=== PATIENT | female | born 1960 | race Caucasian/White ===

== ENCOUNTER 2017-06-17 10:01 | Day surgery (SDC) | payer OTHER ==
[~2017-06-17 10:01] MED LIST: Acetaminophen TAB* 325 MG PO PRN; Buffered Lidocaine 0.9% SYRIN* 5 ML/SYR SYRINGE INTRADERM ONE
[2017-06-17] MEDS ORDERED: Midazolam* 1 MG/ML 2 ML VIAL (2 MG) ONE ×2 (12:16→12:22)
[2017-06-17] MEDS ORDERED: Propofol* 10 MG/ML 20 ML BTL IV PUSH ONE (12:26)
[2017-06-17 12:55] VITALS: BP 113/66
[2017-06-17] MEDS ORDERED: Buffered Lidocaine 0.9% SYRIN* 5 ML/SYR SYRINGE ONE (13:59)
[2017-06-17] MEDS ORDERED: Phenylephrine 2.5% OPTH.SOL* 2 ML BTL ONE (13:59)
[2017-06-17] MEDS ORDERED: Lidocaine 1% MPF* 2 ML VIAL ONE (13:59)
[2017-06-17] MEDS ORDERED: Tetracaine 0.5% OPTH.SOL 4 ML* 1 DROP BTL ONE (13:59)
[2017-06-17] MEDS ORDERED: Ketorolac 0.5% OPHTH (NF) 0.5 % 5 ML BTL ONE (13:59)
[2017-06-17] MEDS ORDERED: Tropicamide 1% OPTH.SOL* BTL ONE (13:59)
[2017-06-17] MEDS ORDERED: Cyclopentolate 1% OPTH.SOL* 2 ML BTL ONE (13:59)
[2017-06-17] MEDS ORDERED: Neomycin/Polymy/Dex OPHTH.OIN* 3.5 GM ONE (13:59)
--- NOTE | 2017-06-17 14:37 | OP ---
DATE OF OPERATION/DATE OF DICTATION: 06/17/2017 - FORMERLY [facility] DATE OF : 1960. SURGEON: Dr. Jake Hurd. CERAMIC TILE INSTALLER: None. ANESTHESIA: Topical with intravenous sedation. PRE-OP DIAGNOSIS: Cataract, right eye. POST-OP DIAGNOSIS: Cataract, right eye. OPERATIVE PROCEDURE: Phacoemulsification and cataract extraction with posterior chamber intraocular lens implant, right eye. COMPLICATIONS: None. BLOOD LOSS: None. DESCRIPTION OF PROCEDURE: The patient was brought to the operating room and received a small amount of intra-venous sedation. A drop of Tetracaine was placed in her right eye. She was prepped and draped in the usual sterile fashion for ophthalmic surgery and attention was directed to the right eye where a speculum was placed. A paracentesis was created at the 11 o'clock position and 0.1 cc of 1 percent preservative-free Lidocaine was injected into the anterior chamber followed by DisCoVisc. The eye was digitally stabilized while a 2.75 mm keratome was used to create a triplanar clear corneal incision at the 9 o'clock position. A continuous curvilinear capsulorrhexis was created with a cystotome and Utrata forceps. BSS on a cannula was used to hydrodissect the lens from the capsule. Phacoemulsification was performed in a divide-and- conquer technique to create four fragments which were removed. Residual cortical material was removed with irrigation and aspiration. DisCoVisc was used to inflate the capsular bag and an AUOOTO 20.5 diopter lens was folded and inserted into the capsular bag. DisCoVisc was removed using irrigation and aspiration. BSS on a cannula was used to hydrate the corneal stroma and seal the wound. At the end of the case the pupil was round and the lens was centered. The eye was of normal pressure and the wound was water tight. The speculum was removed and topical Maxitrol ointment was placed on the surface of the eye. The eye was closed, patched and shielded and the patient was sent to the recovery room in stable condition with post operative instructions and follow-up appointment given. [id number] #: [id number] MTDD
== END 2017-06-17 13:04 | disposition home or self-care (01) ==
LOC: OREAST 10:01
PROVIDERS: ATTEND Ophthalmology
PROC: 08RJ3JZ Replacement of Right Lens with Synthetic Substitute, Percutaneous Approach (ICD-10-PCS; principal; 2017-06-17 11:30)
DX: H25.11 Age-related nuclear cataract, right eye (principal); Z87.891 Personal history of nicotine dependence
CPT/HCPCS: A9270-GY; J2250; J2704; V2632

== ENCOUNTER 2017-12-04 15:02 | Emergency (ER) | payer OTHER ==
--- OUTSIDE RECORDS SUMMARY | 2017-12-04 15:15 | XMS REPORT ---
:1960 External Reference #:[id number] Author Organization [facility] Address [address] [address] Phone [phone] Care Team Providers Name Role Phone Dony Morillo III, MD Primary Care Physician Unavailable Payers Type Date Identification Numbers Payment Provider Subscriber Commercial Policy Number: [id number] Damian Trotter Group Number: [id number] [address] PayID: [id number] [place] [address] Problems Date Description Provider Status Onset: 02/28/2016 Dyspnea Zena Masters MD Active Onset: 02/28/2016 Disorder of lung Zena Masters MD Active Onset: 02/28/2016 Disturbance in sleep behavior Zena Masters MD Active Onset: 03/19/2016 Cough Zena Masters MD Active Onset: 03/19/2016 Allergic rhinitis Zena Masters MD Active Onset: 09/13/2016 Asthma without status asthmaticus Zena Masters MD Active Family History Date Family Member(s) Problem(s) Comments General Cancer General Heart Disease General Hypertension General Stroke Father due to Pulmonary hypertention () Father Hypertension Mother Alive And Well Mother Hypercholesterolemia Social History Type Date Description Comments Marital Status Lives With Alone Occupation Currently Working 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, 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 Cigarette Use 05/31/2016 Quit 6 Years Ago quit 01/2010 ETOH Use Occasionally consumes alcohol Smoking Patient is a former smoker Daily Caffeine Does Not Consume Caffeine Exercise Type/Frequency Exercises regularly Hiking, walking Allergies, Adverse Reactions, Alerts Date Description Reaction Status Severity Comments 02/28/2016 Penicillin twin has allergy active Moderate 02/28/2016 Shellfish-derived Products active 02/28/2016 Vancomycin rash active Medications Medication Date Status Form Strength Qnty SIG Indications Ordering Provider Multivitamin 02/26 Active Tablets 1 tab Unknown daily Flonase Allergy 02/26 Active Suspension 50mcg/Act 15.80 spray 1 Tiago Relief 0ml spray in BERNARDINO Quiñones each nostril twice daily Clonidine HCL Active Tablets 0.5mg 1 po qd Fexofenadine HCL Active Tablets 180mg 30tab 1 by mouth Dony EUri s every day Murphy Morillo Lorazepam Active Tablets 0.5mg 1 by mouth three a day as needed Folic Acid Active Tablets 400mcg take one tablet by mouth every day (supplemen t) Lactose Active Capsules 1Tab Saline Mist [place] Active Solution 0.65% spray in each nostril 6-8 times daily Ranitidine HCL Active Tablets 150mg 1 po daily as needed Potassium 04/06 Hx Tablets ER 20Meq 14tab 1 by mouth Tiago Chloride s every day BERNARDINO Quiñones - x 2 weeks 06/05 Doxycycline 12/26 Hx Capsules 100mg 20cap one tablet J01.90 Tiago Hyclate s twice BERNARDINO Quiñones - daily for 01/03 10 days. Methylprednisolon 11/14 Hx TBPK 4mg 1unit use per M54.Sunil fischer /2016 s directions Bk Morillo M.D. 12/26 Cyclobenzaprine 11/14 Hx Tablets 10mg 30tab one by [email or web address] Maurice HAYDER s mouth Pachikara - Murphy lemus 03/27 times day as needed spasm Doxycycline 08/12 Hx Tablets 100mg 2tabs take both R21 Dony Rivera cl Bk Nur M.D. 03/27 Lorazepam 06/14 Hx Tablets 0.5mg 45tab 1 tab in s prakash Guerra, - and 1/2 M.D. 03/27 tab in the evening Lorazepam 05/31 Hx Tablets 0.5mg 30tab 1 by mouth F41.9 Wilber s daily Charlie, - M.D. 06/14 Trazodone HCL 05/31 Hx Tablets 50mg 30tab take 1 F41.9 Dony E. s tablet by Yisel, - mouth M.D. 03/27 every day for sleep Escitalopram 05/31 Hx Tablets 20mg 30tab Take One F41.9 Wilber Oxalate s Tablet By Charlie, - Mouth Once M.D. 11/14 Nystatin 04/03 Hx Suspension [id number] 180ml 5cc swish Zena /2016 t/ML and spit 2 Guerrero, - times a Levaquin 03/28 Hx Tablets 500mg 7tabs 1 by mouth every day Guerrero, - 05/22 Benzonatate 03/28 Hx Capsules 100mg 120ca 1 capsule ps 2-3 times Guerrero, - a day as 05/31 needed Prednisone 03/19 Hx Tablets 20mg 30tab 3 tabs R05 s daily for Guerrero, - 3 days, 2 05/22 tabs daily for 3 days, 1 tab daily for 7 days, 1/2 tab for 7 days Symbicort 03/18 Hx Aerosol (pt does not take) - 09/12 Alprazolam 02/26 Hx Tablets 0.5mg as needed - 06/14 Biotin 02/26 Hx Capsules 1mg - 03/18 Citalopram 02/26 Hx Tablets 40mg 1 tablet Zena Hydrobromide daily Guerrero, - 02/26 Fish Oil 02/26 Hx Capsules 435mg not taking - 05/31 Flaxseed Oil 02/26 Hx Capsules 1000mg - 12/01 Flonase Allergy 02/26 Hx Suspension 50mcg/Act 2 Unknown intranasal - twice a Omeprazole 02/[address] 40mg not taking - 09/12 Citalopram 02/26 Hx Tablets 40mg 1 by mouth Unknown Hydrobromide /2015 every day - 09/12 Celebrex 02/26 Hx Capsules 50mg 1 by mouth Unknown a day - 11/14 Nexium 02/[address] 40mg 1 by mouth Unknown every day - 05/31 Probiotic Hx Capsules Unknown Acidophilus /0000 - 03/27 Tenex Hx Tablets 1mg start with Unknown /0000 1/4 tab - - (2 of 03/27 1/2 tab) once daily at bedtime for 1 week. increase by 1/4 tablet in 1 wk to 1/2 tab x1at night Pantoprazole Hx Tablets DR 20mg 30tab 1 tab Dony E. Sodium /0000 s daily by Yisel, - mouth M.DUri 12/01 Bupropion HCL Hx Tablets take 1 Unknown /0000 tablet - veras . 12/03 Gabapentin Hx Capsules 300mg Unknown / - 03/27 Benzonatate Hx Capsules 100mg one by Unknown /0000 mouth - three 03/27 times daily as needed for cough Bupropion HCL ER Hx Tablets ER 150mg daily Unknown (XL) /0000 24HR - 06/05 Sertraline HCL Hx Tablets 50mg 1 by mouth Unknown /0000 every day - 12/01 Ashwaganda 00/ Hx Unknown /0000 - 12/01 B12 Hx Chewtabs 1mg take one Unknown /0000 capsule/ta - blet daily 12/01 sublingual /2018 ly Vital Signs Date Vital Result Comment 12/01/2017 Weight 122.00 lb Heart Rate 74 /min BP Systolic Sitting 118 mmHg BP Diastolic Sitting 62 mmHg O2 % BldC Oximetry 95 % 06/20/2017 Height 65 inches 5'5" Weight 119.00 lb Heart Rate 80 /min BP Systolic 122 mmHg BP Diastolic 68 mmHg Respiratory Rate 18 /min Body Temperature 96.9 F Pain Level 8 BMI (Body Mass Index) 19.8 kg/m2 06/05/2017 Weight 119.50 lb Heart Rate 81 /min BP Systolic 118 mmHg BP Diastolic 70 mmHg Body Temperature 97.9 F O2 % BldC Oximetry 98 % 03/27/2017 Weight 111.00 lb Heart Rate 84 /min BP Systolic Sitting 100 mmHg BP Diastolic Sitting 58 mmHg Body Temperature 97.8 F O2 % BldC Oximetry 98 % 12/26/2016 Heart Rate 114 /min BP Systolic Sitting 126 mmHg BP Diastolic Sitting 90 mmHg Respiratory Rate 16 /min Body Temperature 98.5 F O2 % BldC Oximetry 96 % 12/19/2016 Weight 123.00 lb Heart Rate 96 /min BP Systolic Sitting 110 mmHg BP Diastolic Sitting 64 mmHg Respiratory Rate 14 /min Body Temperature 100.1 F O2 % BldC Oximetry 97 % 12/03/2016 Weight 119.00 lb Heart Rate 98 /min BP Systolic Sitting 130 mmHg BP Diastolic Sitting 80 mmHg Respiratory Rate 15 /min Body Temperature 98.7 F O2 % BldC Oximetry 98 % 11/14/2016 Height 65 inches 5'5" Weight 124.00 lb Heart Rate 76 /min BP Systolic 110 mmHg BP Diastolic 62 mmHg Body Temperature 97.6 F O2 % BldC Oximetry 97 % BMI (Body Mass Index) 20.6 kg/m2 09/13/2016 Height 65 inches 5'5" Weight 124.00 lb Heart Rate 66 /min BP Systolic 108 mmHg BP Diastolic 80 mmHg Respiratory Rate 14 /min O2 % BldC Oximetry 98 % BMI (Body Mass Index) 20.6 kg/m2 09/02/2016 Weight 124.12 lb Heart Rate 65 /min BP Systolic 100 mmHg BP Diastolic 64 mmHg Body Temperature 98.2 F O2 % BldC Oximetry 95 % 08/12/2016 Weight 125.12 lb Heart Rate 76 /min BP Systolic 100 mmHg BP Diastolic 66 mmHg Body Temperature 98.1 F O2 % BldC Oximetry 98 % 05/31/2016 Weight 122.00 lb with shoes Heart Rate 79 /min BP Systolic Sitting 132 mmHg BP Diastolic Sitting 84 mmHg O2 % BldC Oximetry 97 % 05/23/2016 Height 65 inches 5'5" Weight 125.00 lb Heart Rate 67 /min BP Systolic 116 mmHg BP Diastolic 80 mmHg Respiratory Rate 14 /min O2 % BldC Oximetry 98 % BMI (Body Mass Index) 20.8 kg/m2 03/19/2016 Height 65 inches 5'5" Weight 125.00 lb Heart Rate 67 /min BP Systolic Sitting 126 mmHg BP Diastolic Sitting 78 mmHg Respiratory Rate 18 /min O2 % BldC Oximetry 97 % BMI (Body Mass Index) 20.8 kg/m2 02/28/2016 Height 65 inches 5'5" Weight 125.00 lb Heart Rate 73 /min BP Systolic 124 mmHg BP Diastolic 80 mmHg Respiratory Rate 14 /min O2 % BldC Oximetry 98 % BMI (Body Mass Index) 20.8 kg/m2 Neck Circumference in inches 13 Results Test Date Test Result H/L Range Note Laboratory test finding 04/24/2017 Erythrocyte Sed Rate 14 mm/Hr 0-30 1 C Reactive Protein < 1.00 mg/L < 5.00 2 Potassium 4.3 mmol/L 3.5-5.0 3 CBC Auto Diff 03/27/2017 White Blood Count 4.5 10^3/uL 3.5-10.8 Red Blood Count 3.94 10^6/uL Low 4.0-5.4 Hemoglobin 12.7 g/dL 12.0-16.0 Hematocrit 37 % 35-47 Mean Corpuscular Volume 95 fL 80-97 Mean Corpuscular Hemoglobin 32 pg High 27-31 Mean Corpuscular HGB Conc 34 g/dL 31-36 Red Cell Distribution Width 13 % 10.5-15 Platelet Count 234 10^3/uL 150-450 Mean Platelet Volume 8 um3 7.4-10.4 Abs Neutrophils 3.0 10^3/uL 1.5-7.7 Abs Lymphocytes 1.2 10^3/uL 1.0-4.8 Abs Monocytes 0.3 10^3/uL 0-0.8 Abs Eosinophils 0 10^3/uL 0-0.6 Abs Basophils 0 10^3/uL 0-0.2 Abs Nucleated RBC 0 10^3/uL Granulocyte % 65.8 % 38-83 Lymphocyte % 26.1 % 25-47 Monocyte % 6.7 % 1-9 Eosinophil % 0.9 % 0-6 Basophil % 0.5 % 0-2 Nucleated Red Blood Cells % 0 Laboratory test finding 03/27/2017 C Reactive Protein 94.31 mg/L High &lt ; 5.00 4 Erythrocyte Sed Rate 37 mm/Hr High 0-30 LDH 237 U/L 140-271 Protein Electrophoresis 03/27/2017 Total Protein(Pep) 6.4 g/dL 6.3 - 7.9 Albumin 3.2 g/dL 3.4-4.7 Alpha-1 Globulin 0.3 g/dL 0.1-0.3 Alpha-2 Globulin 0.9 g/dL 0.6-1.0 Beta Globulin 0.9 g/dL 0.7-1.2 Gamma Globulin 1.1 g/dL 0.6-1.6 Albumin/Globulin Ratio 1.01 Impression See Comment 5 Laboratory test finding 03/27/2017 TSH (Thyroid Stim Horm) 0.64 mcIU/mL 0.34-5.60 Comp Metabolic Panel 03/27/2017 Sodium 139 mmol/L 133-145 Potassium 3.3 mmol/L Low 3.5-5.0 Chloride 103 mmol/L 101-111 Co2 Carbon Dioxide 30 mmol/L 22-32 Anion Gap 6 mmol/L 2-11 Glucose 81 mg/dL 70-100 Blood Urea Nitrogen 17 mg/dL 6-24 Creatinine 0.60 mg/dL 0.51-0.95 BUN/Creatinine Ratio 28.3 High 8-20 Calcium 8.9 mg/dL 8.6-10.3 Total Protein 6.2 g/dL Low 6.4-8.9 Albumin 3.6 g/dL 3.2-5.2 Globulin 2.6 g/dL 2-4 Albumin/Globulin Ratio 1.4 1-3 Total Bilirubin 0.40 mg/dL 0.2-1.0 Alkaline Phosphatase 59 U/L 34-104 Alt 23 U/L 7-52 Ast 25 U/L 13-39 Egfr Non- 102.7 >60 Egfr 132.1 >60 6 Laboratory test finding 03/27/2017 HIV 1&2 AB Self Nonreactive Nonreactive 7 Referred Lyme Disease Serology Negative Negative 8 Laboratory test finding 09/02/2016 Lyme Disease Serology Negative Negative 9 1 two weeks, after completing potassium supplement 2 Acute inflammation: >10.00 3 two weeks, after completing potassium supplement 4 Acute inflammation: >10.00 5 RESULT: No apparent monoclonal protein on serum electrophoresis. Test Performed by: [facility] - [address] [address] 6 Because ethnic data is not always readily available, this report includes an eGFR for both -Americans and non- Americans. The National Kidney Disease Education Program (NKDEP) does not endorse the use of the MDRD equation for patients that are not between the ages of 18 and 70, are , have extremes of body size, muscle mass, or nutritional status, or are non- or non-. According to the National Kidney Foundation, irrespective of diagnosis, the stage of the disease is based on the level of kidney function: Stage Description GFR(mL/min/1.73 m(2)) 1 Kidney damage with normal or decreased GFR 90 2 Kidney damage with mild decrease in GFR 60-89 3 Moderate decrease in GFR 30-59 4 Severe decrease in GFR 15-29 5 Kidney failure <15 (or dialysis) 7 It is recognized that currently available assays for the detection of antibodies to HIV-1 and/or HIV-2 may not detect all infected individuals. HIV antibodies may be undetectable in some stages of the infection and in some clinical conditions. The performance of this assay has not been established for populations of infants or children. Assayed by Chemiluminescence Microparticle Immunoassay on the Siemens Advia Centaur CP. Values obtained with different methods or kits cannot be used interchangeably.The diagnostic specificity of the ADVIA Centaur 1/O/2 Enhanced assay in the low risk population was 99.90% (6052/6058) with a 95% confidence interval of 99.78 to 99.96%. 8 Serologic response to B. burgdorferi infection is not detected, but cannot rule out early infection during which low or undetectable antibody levels to B. burgdorferi may be present. If clinically indicated, a new serum specimen should be submitted in 7-14 days. Test Performed by: [address] [address] Serologic response to B. burgdorferi infection is not detected, but cannot rule out early infection during which low or undetectable antibody levels to B. burgdorferi may be present. If clinically indicated, a new serum specimen should be submitted in 7-14 days. Test Performed by: [address] [address] Organizational Development Director: Hernesto Oden II, M.D., Ph.D. Procedures Date CPT Code Description Status 08/22/2016 47750 Diffusing Capacity Completed 08/22/2016 64814 Plethysmography Determination Lung Volumes & Per Completed Airway Resist 08/22/2016 05428 Pulmonary Function><Bronchodil Completed Encounters Type Date Location Provider CPT E/M Dx Office Visit 06/20/2017 [facility] [place] [address] M18.11 1:30p C.M.A. M65.842 M19.032 Office Visit 06/05/2017 2:20p [facility] - [place] [address] Z01.818 Francisco H26.9 M25.539 Office Visit 03/27/2017 11:40a [facility] [place] [address] R53.83 Francisco R63.4 Z12.31 Office Visit 12/26/2016 4:00p [facility] [place] [address] J01.90 - Francisco Office Visit 12/19/2016 4:00p [facility] Dony Morillo, [address] J06.9 - Yaniv Arrington Z12.11 Office Visit 12/03/2016 3:00p [facility] Wilber Guerra M.D. [address]6906 J06.9 - Yaniv Office Visit 11/14/2016 11:20a [facility] Dony Morillo, [address] M54.9 - Yaniv Arrington N39.3 Office Visit 09/13/2016 11:45a [facility] [place] [address] J45.909 [facility] J98.4 Office Visit 09/02/2016 2:00p [facility] Dony Morillo, [address] R07.9 - Yaniv Arrington M70.21 Office Visit 08/12/2016 2:20p [facility] - Dony Morillo, [address] R21 Yaniv Arrington Office Visit 05/31/2016 10:00a [facility] - Wilber Guerra M.D. [address]155 I10 Yaniv F41.9 Z12.31 Office Visit 05/23/2016 9:45a [facility] [address] R05 [facility] J30.9 J98.4 Office Visit 03/19/2016 10:15a [facility] [place] [address] R05 [facility] [employer] J30.9 Office Visit 02/28/2016 10:15a [facility] [place] [address] R06.02 [facility] J98.4 G47.9 Plan of Care 06/20/2017 - Wilber Peace, MDM18.11 Unil primary osteoarth of first carpometacarp joint, r handFollow up:Follow up: 2-3 jqubphN85.842 Other synovitis and tenosynovitis, left handM19.032 Primary osteoarthritis, left wrist
[2017-12-04 15:16] VITALS: BP 110/74
[2017-12-04] MEDS ORDERED: Ibuprofen TAB* 800 MG PO ONE (15:45)
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
[2017-12-04] MEDS ORDERED: Ibuprofen TAB* 400 MG PO ONE ×2 (16:24→16:27)
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
== END 2017-12-04 16:57 | disposition home or self-care (01) ==
LOC: UCEAST 15:02
DX: S06.0X9A Concussion with loss of consciousness of unspecified duration, initial encounter (principal); V43.52XA Car driver injured in collision with other type car in traffic accident, initial encounter; Y93.89 Activity, other specified; Y92.410 Unspecified street and highway as the place of occurrence of the external cause; M25.532 Pain in left wrist; F95.2 Tourette's disorder; Z88.0 Allergy status to penicillin; Z88.1 Allergy status to other antibiotic agents; Z91.030 Bee allergy status; Z87.891 Personal history of nicotine dependence
CPT/HCPCS: 70450; 99212; A9270-GY; G0463

== ENCOUNTER 2018-06-14 18:18 | Emergency (ER) | payer OTHER ==
[2018-06-14] MEDS ORDERED: predniSONE TAB* 10 MG PO ONE (18:38)
[2018-06-14] MEDS ORDERED: diPHENhydraMINE PO* 25 MG PO ONE ×2 (18:39→20:29)
[2018-06-14] MEDS ORDERED: Famotidine TAB* 20 MG PO ONE (18:39)
--- NOTE | 2018-06-14 18:58 | ED ---
Allergic Reaction/Systemic - HPI Summary HPI Summary: 58-year-old female presents with allergic reaction to bees today. She was younger she had generalized swelling. States that she got multiple yellow jacket stings today. States has erythema around wound. She took a Benadryl immediately. She denies any shortness breath or chest pain. She denies any sore throat. She admits to some palpitations but this may be due to anxiety. No nausea ot vomiting. No abdominal pain. She has history tourette so can only have low dose prednisone. - History of Current Complaint Chief Complaint: EDAllergicReaction Time Seen by Provider: 06/14/18 18:33 Hx Last Menstrual Period: "Several years ago." Pain Intensity: 9 - Allergies/Home Medications Allergies/Adverse Reactions: Allergies Allergy/AdvReac Type Severity Reaction Status Date / Time Penicillins Allergy Unknown Verified 06/14/18 18:55 Reaction Details shellfish derived Allergy Hives Verified 06/14/18 18:55 vancomycin Allergy Rash Verified 06/14/18 18:55 ENVIRONMENTAL Allergy Intermediate Eyes Uncoded 06/14/18 18:55 Itchy/Swollen/Red/Watery BEES Allergy Hives Uncoded 06/14/18 18:55 PMH/Surg Hx/FS Hx/Imm Hx Endocrine/Hematology History: Denies: Hx Anticoagulant Therapy, Hx Diabetes, Hx Thyroid Disease Cardiovascular History: Reports: Hx Valvular Heart Disease Denies: Hx Congestive Heart Failure, Hx Deep Vein Thrombosis, Hx Hypertension , Hx Myocardial Infarction, Hx Pacemaker/ICD Comment Only: Other Cardiovascular Problems/Disorders - VASO VAGAL SNYCOPE Respiratory History: Reports: Hx Asthma - ASTHMATIC ALLERGIES LAST YR 2015, Other Respiratory Problems/Disorders - seasonal allergies Denies: Hx Chronic Obstructive Pulmonary Disease (COPD), Hx Lung Cancer, Hx Pneumonia, Hx Pulmonary Embolism GI History: Reports: Hx Gastroesophageal Reflux Disease - LPRD SYNDROME, Hx Irritable Bowel - Hx OF, CURRENTLY [place], Other GI Disorders - LPRD Denies: Hx Gall Bladder Disease, Hx Gastrointestinal Bleed, Hx Ulcer, Hx Urosepsis History: Denies: Hx Kidney Stones, Hx Renal Disease Musculoskeletal History: Reports: Hx Arthritis - HANDS/WRISTS, 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, Hx Scoliosis Sensory History: Reports: Hx Cataracts - BILAT, Hx Contacts or Glasses Denies: Hx Hearing Aid Opthamlomology History: Reports: Hx Cataracts - BILAT, Hx Contacts or Glasses Neurological History: Reports: Hx Headaches, Hx Nerve Disease - TOURETTES SYNDROME Denies: Hx Dementia, Hx Migraine, Hx Seizures, Hx Transient Ischemic Attacks (TIA) Psychiatric History: Reports: Hx Anxiety, Hx Depression - SITUATIONAL Denies: Hx Schizophrenia, Hx Bipolar Disorder - Surgical History Surgery Procedure, Year, and Place: femur fracture 1992; ovarian cysts removed; vocal surgery and deviated septum repair 2002; L wrist ligaments 2008, facial surgery 2012, detached retina, cataract 2012, REDO LEFT DETACHED RETINA 2012. 2016 [facility] Hx Anesthesia Reactions: Yes - SHIVERING - Immunization History Immunizations Up to Date: Yes Infectious Disease History: No Infectious Disease History: Reports: History Other Infectious Disease - osteomylitis left elbow Denies: Hx Hepatitis, Hx Human Immunodeficiency Virus (HIV), Traveled Outside the [place] in Last 30 Days - Family History Known Family History: Positive: Hypertension Negative: Diabetes Family History: non contributory - Social History Alcohol Use: Occasionally Alcohol Amount: BEER, LIQUOR, WINE 4 DRINKS Substance Use Type: Reports: None Smoking Status (MU): Former Smoker Type: Cigarettes Review of Systems Negative: Fever Negative: Chest Pain Negative: Shortness Of Breath Positive: Rash All Other Systems Reviewed And Are Negative: Yes Physical Exam Triage Information Reviewed: Yes Vital Signs On Initial Exam: Initial Vitals Temp Pulse Resp BP Pulse Ox 97.6 F 77 16 131/69 98 06/14/18 18:21 06/14/18 18:21 06/14/18 18:21 06/14/18 18:21 06/14/18 18:21 Vital Signs Reviewed: Yes Appearance: Positive: Well-Appearing Skin: Positive: Warm, Dry Head/Face: Positive: Normal Head/Face Inspection Eyes: Positive: Normal, EOMI, TAL, Conjunctiva Clear ENT: Positive: Pharynx normal Respiratory/Lung Sounds: Positive: Clear to Auscultation, Breath Sounds Present Cardiovascular: Positive: Normal, RRR Abdomen Description: Positive: Nontender, Soft Bowel Sounds: Positive: Present Musculoskeletal: Positive: Normal Neurological: Positive: Normal Psychiatric: Positive: Normal Diagnostics - Vital Signs Vital Signs Temp Pulse Resp BP Pulse Ox 06/14/18 18:21 97.6 F 77 16 131/69 98 - Laboratory Lab Statement: Any lab studies that have been ordered have been reviewed, and results considered in the medical decision making process. Re-Evaluation - Re-Evaluation First Eval Re-Evaluation Time: 20:31 Change: Improved Comment: lungs CTA. rash better Allergic Reaction Course/Dx - Course Course Of Treatment: 58-year-old female presents with allergic reaction to bees today. She was younger she had generalized swelling. States that she got multiple yellow jacket stings today. States has erythema around wound. She took a Benadryl immediately. She denies any shortness breath or chest pain. She denies any sore throat. She admits to some palpitations but this may be due to anxiety. No nausea ot vomiting. No abdominal pain. She has history tourette so can only have low dose prednisone. On exam his multiple bee stings with surrounding erythema. Some hives present on back. Lungs clear to auscultation. Pharynx normal. Gave low dose steroid and Benadryl and feeling better. told to continue Benadryl. patient states has steriod at home. Patient understands and agrees with plan. - Diagnoses Differential Diagnosis/HQI/PQRI: Positive: Anaphylaxis, Local Allergic Reaction , Urticaria Provider Diagnoses: Bee sting Discharge - Sign-Out/Discharge Documenting (check all that apply): Patient Departure - Discharge Plan Condition: Good Disposition: HOME Patient Education Materials: Insect Bite or Sting (ED) Referrals: Dony Morillo MD [Medical Doctor] - Additional Instructions: Take Benadryl every 6 hours for next 24 hours and after that as needed for itching every 6 hours can apply hydrocortisone to area Take steroid once a day for 4 days starting tomorrow if needed for worsening symptoms Return to ED if shortness of breath, chest pain, or if develop any new or worsening symptoms - Billing Disposition and Condition Condition: GOOD Disposition: Home
[2018-06-14 20:55] VITALS: BP 120/64
== END 2018-06-14 20:53 | disposition home or self-care (01) ==
LOC: ED 18:18
DX: T63.441A Toxic effect of venom of bees, accidental (unintentional), initial encounter (principal); R21 Rash and other nonspecific skin eruption; Y92.9 Unspecified place or not applicable; Z87.891 Personal history of nicotine dependence
CPT/HCPCS: 99283; A9270-GY; J7512